=== PATIENT | female | born 1970 | race African-American/Black ===

== ENCOUNTER 2016-08-28 16:09 | Emergency (ER) | payer BC, OTHER ==
[2016-08-28] MEDS ORDERED: SODIUM CHLORIDE 0.9% 1,000 ML ONE (18:53)
[2016-08-28] MEDS ORDERED: ONDANSETRON 4 MG VIAL ONE (18:53)
[2016-08-28] MEDS ORDERED: KETOROLAC 30 MG/ML VIAL ONE (20:27)
[2016-08-28] MEDS ORDERED: DIPHENHYDRAMINE 50 MG/ML VIAL ONE (20:27)
[2016-08-28] MEDS ORDERED: ACETAMINOPHEN 325 MG TAB ONE (20:59)
[2016-08-28] MEDS ORDERED: METOCLOPRAMIDE 10 MG/2 ML VIAL ONE (20:59)
== END 2016-08-28 22:05 | disposition home or self-care (01) ==
LOC: ER 16:09
CPT/HCPCS: 36415; 70450; 74022; 80053; 81003; 83690; 84703; 85025; 87491; 87591; 87800; 87804; 87880; 96374; 96375